=== PATIENT | female | born 1975 | race Caucasian/White ===

== ENCOUNTER 2017-10-27 10:39 | Inpatient (IN) | payer OTHER ==
[2017-10-27] MEDS ORDERED: IBUPROFEN 600 MG TAB PO (11:30)
[2017-10-27] MEDS ORDERED: MISOPROSTOL 200 MCG TAB PR (11:30)
[2017-10-27] MEDS ORDERED: AMPICILLIN 2 GM/NS (PMX) 100 ML IV (11:30)
[2017-10-27] MEDS ORDERED: BUTORPHANOL 1 MG INJ IV (11:30)
[2017-10-27] MEDS ORDERED: OXYTOCIN 30 UNITS/LR 500 ML IV (11:30)
[2017-10-27] MEDS ORDERED: METHYLERGONOVINE 0.2 MG INJ IM (11:30)
[2017-10-27] MEDS ORDERED: CARBOPROST 250 MCG INJ IM (11:30)
[2017-10-27 11:57] LABS: ADD MAN DIFF? NO
[2017-10-27] MEDS: LACTATED RINGER'S 1,000 ML IV ×2 (12:11→18:38)
[2017-10-27 12:20] LABS: BASOPHILS % 0.5 % (0.0-2.0); EOSINOPHILS # 0.1 10^3/ul (0.0-0.5); EOSINOPHILS % 1.5 % (0.0-7.0); HEMATOCRIT 32.4 % (37.0-47.0); LYMPHOCYTES # 1.9 10^3/ul (0.8-2.9); LYMPHOCYTES % 22.2 % (15.0-51.0); MEAN CORPUSCULAR HEMOGLOBIN 30.6 pg (29.0-33.0); MEAN CORPUSCULAR VOLUME 90.3 fl (82.0-101.0); MONOCYTE # 0.4 10^3/ul (0.3-0.9); MONOCYTES % 4.9 % (0.0-11.0); NEUTROPHIL # 5.9 10^3/ul (1.6-7.5); NEUTROPHILS % 69.6 % (39.0-77.0); PLATELET COUNT 242 10^3/UL (140-415); RED BLOOD COUNT 3.59 10^6/ul (4.20-5.40); RED CELL DISTRIBUTION WIDTH 14.2 % (11.5-14.5)
[2017-10-27 12:20] LABS: WHITE BLOOD COUNT 8.5 10^3/ul (4.8-10.8)
[2017-10-27 12:48] LABS: INR 0.97
[2017-10-27 12:49] LABS: PARTIAL THROMBOPLASTIN TIME 31.1 Sec (25.0-35.0)
[2017-10-27] MEDS: DINOPROSTONE 10 MG VAG SUPP VAG (15:08)
[2017-10-27] MEDS ORDERED: AMPICILLIN 1 GM/NS (PMX) 50 ML IV (15:30)
[2017-10-27 20:38] LABS: RAPID PLASMA REAGIN NONREACTIVE (NR)
[2017-10-27 21:45] LABS: HEPATITIS B SURFACE ANTIGEN NEGATIVE (NEGATIVE)
[2017-10-28] MEDS: LACTATED RINGER'S 1,000 ML IV ×3 (02:21→18:21)
[2017-10-28] MEDS: DINOPROSTONE 10 MG VAG SUPP VAG (09:00)
[2017-10-29] MEDS: LACTATED RINGER'S 1,000 ML IV ×2 (00:31→11:21)
[2017-10-29] MEDS ORDERED: FENTAnyl 2MCG/ML-ROPIV 0.2% 100 ML (00:50)
[2017-10-29] MEDS: OXYTOCIN 30 UNITS/LR 500 ML IV ×3 (01:33→16:31)
[2017-10-29] MEDS: FENTAnyl 2MCG/ML-ROPIV 0.2% 100 ML BAG EPI ×2 (08:20→12:15)
[2017-10-29] MEDS ORDERED: ONDANSETRON 4 MG INJ IV ×2 (08:30→16:30)
[2017-10-29] MEDS ORDERED: DIPHENHYDRAMINE 50 MG INJ IV (08:30)
[2017-10-29] MEDS ORDERED: NALOXONE (0.4 MG/ML) INJ IV (08:30)
[2017-10-29] MEDS ORDERED: HYDROmorphONE 0.5 MG/0.5 ML SYG IV ×2 (08:30)
[2017-10-29] MEDS: BUTORPHANOL 2 MG INJ IV (08:49)
[2017-10-29] MEDS: LIDOCAINE 1% (MPF) 30 ML INJ INJ (16:15)
[2017-10-29] MEDS ORDERED: SENNA/DOCUSATE NA (8.6MG/50MG) TAB PO (16:30)
[2017-10-29] MEDS ORDERED: BENZOCAINE 20% 56 ML SPRAY TOP (16:30)
[2017-10-29] MEDS ORDERED: MISOPROSTOL 200 MCG TAB PR (16:30)
[2017-10-29] MEDS ORDERED: CARBOPROST 250 MCG INJ IM (16:30)
[2017-10-29] MEDS ORDERED: METHYLERGONOVINE 0.2 MG INJ IM (16:30)
[2017-10-29] MEDS ORDERED: DIPHENHYDRAMINE 25 MG CAP PO (16:30)
[2017-10-29] MEDS ORDERED: DIBUCAINE 1% 30 GM OINT PR (16:30)
[2017-10-29] MEDS ORDERED: OXYTOCIN 30 UNITS/LR 500 ML IV (16:30)
[2017-10-29 16:55] LABS: ADD MAN DIFF? NO
[2017-10-29 16:58] LABS: WHITE BLOOD COUNT 12.5 10^3/ul (4.8-10.8)
[2017-10-29 16:58] LABS: BASOPHILS % 0.2 % (0.0-2.0); EOSINOPHILS % 0.1 % (0.0-7.0); HEMOGLOBIN 10.2 g/dl (12.0-16.0); LYMPHOCYTES % 8.1 % (15.0-51.0); MEAN CORPUSCULAR HEMOGLOBIN 30.4 pg (29.0-33.0); MEAN CORPUSCULAR HGB CONC 32.9 g/dl (32.0-37.0); MEAN CORPUSCULAR VOLUME 92.5 fl (82.0-101.0); MEAN PLATELET VOLUME 10.7 fl (7.4-10.4); MONOCYTE # 0.4 10^3/ul (0.3-0.9); MONOCYTES % 3.2 % (0.0-11.0); NEUTROPHILS % 87.8 % (39.0-77.0); PLATELET COUNT 197 10^3/UL (140-415); RED BLOOD COUNT 3.35 10^6/ul (4.20-5.40); RED CELL DISTRIBUTION WIDTH 14.6 % (11.5-14.5)
[2017-10-29] MEDS: IBUPROFEN 600 MG TAB PO ×2 (19:44→23:58)
[2017-10-29] MEDS: SENNA/DOCUSATE NA (8.6MG/50MG) TAB PO (21:10)
[2017-10-29] MEDS: LANOLIN 7 GM TUBE TOP (23:57)
[2017-10-29] MEDS: WITCH HAZEL/GLYCERIN PAD PR (23:58)
[2017-10-30] MEDS: IBUPROFEN 600 MG TAB PO ×4 (05:32→23:50)
[2017-10-30 08:41] LABS: ADD MAN DIFF? NO
[2017-10-30 08:45] LABS: WHITE BLOOD COUNT 15.8 10^3/ul (4.8-10.8)
[2017-10-30 08:45] LABS: BASOPHILS % 0.2 % (0.0-2.0); EOSINOPHILS # 0.1 10^3/ul (0.0-0.5); EOSINOPHILS % 0.4 % (0.0-7.0); HEMATOCRIT 28.2 % (37.0-47.0); HEMOGLOBIN 9.4 g/dl (12.0-16.0); LYMPHOCYTES # 1.6 10^3/ul (0.8-2.9); LYMPHOCYTES % 10.1 % (15.0-51.0); MEAN CORPUSCULAR HEMOGLOBIN 30.2 pg (29.0-33.0); MEAN CORPUSCULAR HGB CONC 33.3 g/dl (32.0-37.0); MEAN CORPUSCULAR VOLUME 90.7 fl (82.0-101.0); MEAN PLATELET VOLUME 11.2 fl (7.4-10.4); MONOCYTE # 0.6 10^3/ul (0.3-0.9); MONOCYTES % 3.5 % (0.0-11.0); NEUTROPHIL # 13.4 10^3/ul (1.6-7.5); NEUTROPHILS % 85.3 % (39.0-77.0); PLATELET COUNT 198 10^3/UL (140-415); RED BLOOD COUNT 3.11 10^6/ul (4.20-5.40); RED CELL DISTRIBUTION WIDTH 14.7 % (11.5-14.5)
[2017-10-30] MEDS: SENNA/DOCUSATE NA (8.6MG/50MG) TAB PO ×2 (08:54→20:46)
[2017-10-30] MEDS: OXYCODONE/ACETAMINOPHEN (5/325) TAB PO (15:11)
[2017-10-31] MEDS: IBUPROFEN 600 MG TAB PO ×3 (06:10→17:25)
[2017-10-31] MEDS: SENNA/DOCUSATE NA (8.6MG/50MG) TAB PO (09:00)
== END 2017-10-31 20:00 | disposition home or self-care (01) | DRG 775 ==
LOC: L-D 10:39 → PP1 10-29 18:03
PROVIDERS: Obstetrics & Gynecology
PROC: 10E0XZZ Delivery of Products of Conception, External Approach (ICD-10-PCS; principal; 2017-10-29)
PROC: 0KQM0ZZ Repair Perineum Muscle, Open Approach (ICD-10-PCS; 2017-10-29)
PROC: 3E033VJ Introduction of Other Hormone into Peripheral Vein, Percutaneous Approach (ICD-10-PCS; 2017-10-29)
DX: O48.0 Post-term pregnancy (principal); Z3A.40 40 weeks gestation of pregnancy; O70.1 Second degree perineal laceration during delivery; O43.193 Other malformation of placenta, third trimester; Z37.0 Single live birth
CPT/HCPCS: 62319; 76815; 76818; 85025; 85610; 85730; 86592; 86850; 86900; 86901; 87340

== ENCOUNTER 2018-06-19 09:06 | Day surgery (SDC) | payer OTHER ==
[2018-06-19 10:06] LABS: ADD MAN DIFF? NO
[2018-06-19 10:14] LABS: WHITE BLOOD COUNT 7.2 10^3/ul (4.8-10.8)
[2018-06-19 10:14] LABS: BASOPHILS % 0.6 % (0.0-2.0); EOSINOPHILS # 0.2 10^3/ul (0.0-0.5); EOSINOPHILS % 3.2 % (0.0-7.0); HEMATOCRIT 41.3 % (37.0-47.0); HEMOGLOBIN 13.6 g/dl (12.0-16.0); LYMPHOCYTES # 2.3 10^3/ul (0.8-2.9); LYMPHOCYTES % 31.5 % (15.0-51.0); MEAN CORPUSCULAR HEMOGLOBIN 30.5 pg (29.0-33.0); MEAN CORPUSCULAR HGB CONC 32.9 g/dl (32.0-37.0); MEAN CORPUSCULAR VOLUME 92.6 fl (82.0-101.0); MONOCYTE # 0.3 10^3/ul (0.3-0.9); MONOCYTES % 4.1 % (0.0-11.0); NEUTROPHIL # 4.4 10^3/ul (1.6-7.5); NEUTROPHILS % 60.3 % (39.0-77.0); PLATELET COUNT 248 10^3/UL (140-415); RED BLOOD COUNT 4.46 10^6/ul (4.20-5.40); RED CELL DISTRIBUTION WIDTH 12.8 % (11.5-14.5)
[2018-06-19] MEDS ORDERED: MIDAZOLAM 1 MG/ML 2 ML INJ (11:27)
[2018-06-19] MEDS ORDERED: FENTAnyl 50 MCG/ML VIAL (11:27)
[2018-06-19] MEDS ORDERED: KETOROLAC 30 MG INJ (11:32)
[2018-06-19] MEDS ORDERED: ONDANSETRON 4 MG INJ (11:41)
[2018-06-19] MEDS ORDERED: LIDOCAINE 2% (SDV) 5 ML INJ (11:41)
[2018-06-19] MEDS ORDERED: PROPOFOL 20 ML (11:41)
[2018-06-19] MEDS ORDERED: DEXAMETHASONE 4 MG/ML 1 ML INJ (11:41)
[2018-06-19] MEDS ORDERED: MEPERIDINE 25 MG INJ IV (12:30)
[2018-06-19] MEDS ORDERED: ONDANSETRON 4 MG INJ IV (12:30)
[2018-06-19] MEDS ORDERED: HYDROmorphONE 1 MG/5 ML IV SYRINGE IV (12:30)
[2018-06-19] MEDS ORDERED: FENTAnyl 50 MCG/ML VIAL IV (12:30)
== END 2018-06-19 13:55 | disposition home or self-care (01) ==
LOC: SDS 09:06
DX: Z30.2 Encounter for sterilization (principal)
CPT/HCPCS: 58565; 84703; 85025; 86850; 86900; 86901